=== PATIENT | male | born 1955 | race Caucasian/White ===

== ENCOUNTER 2018-12-03 11:19 | Day surgery (SDC) | payer OTHER ==
[2018-12-03] MEDS: CEFAZOLIN 2 GM/50 ML (PMX) 50 ML IVPB (11:30)
[2018-12-03] MEDS ORDERED: SEVOFLURANE 15 MIN (12:00)
[2018-12-03] MEDS ORDERED: PROPOFOL 20 ML (12:05)
[2018-12-03] MEDS ORDERED: LIDOCAINE 1% (MDV) 20 ML INJ (12:06)
[2018-12-03] MEDS ORDERED: ONDANSETRON 4 MG INJ (12:06)
[2018-12-03] MEDS ORDERED: KETOROLAC 30 MG INJ (12:06)
[2018-12-03] MEDS ORDERED: MIDAZOLAM 1 MG/ML 2 ML INJ (12:06)
[2018-12-03] MEDS ORDERED: CEFAZOLIN 1 GM INJ (12:07)
[2018-12-03] MEDS ORDERED: LABETALOL HCL 20MG INJ IV (12:30)
[2018-12-03] MEDS ORDERED: MEPERIDINE 25 MG INJ IV (12:30)
[2018-12-03] MEDS ORDERED: HYDROmorphONE 1 MG/5 ML IV SYRINGE IV (12:30)
[2018-12-03] MEDS ORDERED: HYDROCODONE/APAP (7.5/325) TAB PO (14:00)
[2018-12-03] MEDS: ONDANSETRON 4 MG INJ IV (14:39)
[2018-12-03] MEDS: HYDROmorphONE 1 MG/5 ML IV SYRINGE IV ×2 (14:39→14:45)
[2018-12-03] MEDS: SOD CHLORIDE 0.9% 1,000 ML IV (14:43)
== END 2018-12-03 16:28 | disposition home or self-care (01) ==
LOC: REC 11:19 → SDS 11:19
DX: D05.11 Intraductal carcinoma in situ of right breast (principal); E78.2 Mixed hyperlipidemia; I10 Essential (primary) hypertension; F17.210 Nicotine dependence, cigarettes, uncomplicated; N62 Hypertrophy of breast
CPT/HCPCS: 19303; 88307